=== PATIENT | female | born 1975 | race Caucasian/White ===

== ENCOUNTER 2019-06-30 00:58 | Inpatient (IN) | payer OTHER, SELFPAY ==
[2019-06-30] VITALS (20 sets, daily range): BP systolic 102–141; BP diastolic 47–69; PULSE 83–107; RESP 16–30; TEMP 36.8–39.3; O2SAT 85–98; BMI 26.2
--- NOTE | ~2019-06-30 | XR_ITS ---
XR chest 1V portable DATE: 06/30/2019 02:36 INDICATION: Cough, shortness of breath. History of asthma. TECHNIQUE: Portable upright AP chest on 06/30/2019 at 0235 hours COMPARISON: 05/07/2018 PA and lateral chest FINDINGS: There are patchy bilateral infiltrates, more greater on the left, most prominent in the lef t lower lung, with additional areas in the left upper lobe, right lower lung. Normal heart size. No pulmonary vascular congestion or pleural effusion or pneumothorax. IMPRESSION: Patchy bilateral pulmonary infiltrates Reviewed, dictated and finalized at location A. SUCKER
--- NOTE | ~2019-06-30 | US_ITS ---
EXAMINATION: US venous doppler [facility] DATE: 07/03/2019 14:40 INDICATION: Lower limb pain. TECHNIQUE: Grayscale ultrasound images without and with compression and Doppler ultrasound images of the bilateral lower extremity veins were obtained. COMPARISON: None. FINDINGS: The visualized portions of right common femoral vein, profunda (deep) femoral vein, femoral vein, pop liteal vein, peroneal veins, posterior tibial veins, and greater saphenous vein outflow are patent. The visualized portions of left common femoral vein, profunda femoral vein, femoral vein, popliteal v ein, peroneal veins, posterior tibial veins, and greater saphenous vein outflow are patent. IMPRESSION: 1. No deep venous thrombosis. Reviewed, dictated and finalized at location A. N CHAIN OFF BEARER
--- NOTE | ~2019-06-30 | CT_ITS ---
EXAMINATION: CTA chest PE protocol DATE: 06/30/2019 09:48 INDICATION: Shortness of breath, increased respiratory rate, lung crackles TECHNIQUE: Computed tomography angiography (CTA) of the chest was performed with 100 mL Omnipaque-350 intravenous contrast timed to evaluate the pulmonary arteries. Coronal maximum intensity projection 3D-reconstructions were created by the technologist. Automated exposure control and iterative reconst ruction technique were employed. Exam dose: 208.35 mGy-cm total exam DLP. COMPARISON: 06/30/2019 portable AP chest FINDINGS: There is diagnostic contrast enhancement of the pulmonary arteries and no evidence of pulmo nary embolism. No thoracic aortic aneurysm or dissection. There is nonspecific mild bilateral hilar and mediastinal lymphadenopathy, possibly reactive. There is bilateral lower lobe dependent atelectasis. There are patchy geographic areas of groundglass infiltrate involving particularly the upper lobes, l eft greater than right and to a mild extent the left and to a lesser extent right lower lobes. Incidentally noted is mild pneumobilia. No suspicious osteolytic or osteoblastic lesions are noted. IMPRESSION: Bilateral pulmonary infiltrates and likely reactive bilateral hilar or mediastinal lymph adenopathy No evidence of pulmonary embolism Reviewed, dictated and finalized at [facility]. Reviewed, dictated and finalized at location A. TIVE SPOTTER IMPRESSION: Bilateral pulmonary infiltrates and likely reactive bilateral nomi r or mediastinal lymphadenopathy No evidence of pulmonary embolism
--- NOTE | 2019-06-30 01:02 | ED.SOB ---
HPI - SOB/Dyspnea General Chief Complaint: Shortness of Breath/Dyspnea Stated Complaint: sob Time Seen by Provider: 06/30/19 01:01 Source: patient and RN notes reviewed Mode of arrival: EMS Limitations: no limitations History of Present Illness HPI Narrative: Pt is a 43 y/o female presenting to the ED via EMS c/o SOB. Pt reports she has been experiencing SOB and cough for 1 week. Pt also reports chills and chronic BLE swelling, but denies fever. Pt states she does not have a Hx of CHF, but is a 1 ppd smoker. Pt notes she is not on any home oxygen. Pertinent past history: other (None) Onset (ago): week(s) (1) Associated symptoms: cough and other (Chronic BLE swelling; chills) Related Data Allergies Allergy/AdvReac Type Severity Reaction Status Date / Time cyclobenzaprine Allergy Intermediate Hives Verified 05/29/19 20:23 latex Allergy Intermediate Hives Verified 05/29/19 20:23 methotrexate Allergy Intermediate Nausea and Verified 05/29/19 20:23 Vomiting CYCLOBENZAPRINE HCL Allergy Mild RASHES Uncoded 02/13/19 08:04 Review of Systems Review of Systems: All systems reviewed & are unremarkable except as noted in HPI and below Constitutional: Constitutional: Reports chills and Denies fever(s) Respiratory: Respiratory: Reports cough and Reports dyspnea Integumentary/Breasts: Skin/Breast: Reports swelling (Chronic BLE) PMFSH Past Medical History Medical History Abnormal uterine bleeding Anemia Anxiety Asthma DDD (degenerative disc disease) Depression GERD (gastroesophageal reflux disease) History of bipolar disorder History of fibromyalgia History of lupus History of rheumatoid arthritis Hypothyroid IBS (irritable bowel syndrome) Migraine Ovarian cyst Pancreatitis Pneumonia Shingles Surgical History Surgical History H/O abdominal surgery Pancreatic stent placed H/O dilation and curettage H/O tubal ligation History of History of cholecystectomy Family History Family History Mother Patient's mother is in good health Family history of diabetes mellitus in first degree relative Father Cerebrovascular accident, Onset Age: 69 Family history of Alzheimer's disease, Onset Age: 69 Hypertension Family history of coronary artery disease Other Family history of lupus erythematosus Family history of malignant neoplasm of breast Social History Social History Smoking packs per day: 1 Smoking cigarettes per day: 20.0 Smoking status: Current every day smoker Second hand tobacco smoke exposure: No Smoking end date: 06/05/10 Alcohol intake: never Exam Narrative: Exam Narrative: APPEARANCE: Mild respiratory distress, nontoxic, resting in bed EYES: EOMI HEENT: Normocephalic, atraumatic, bilateral turbinates boggy, oral mucosa moist RESPIRATORY: Mild respiratory distress, coarse breath sounds at the bilateral lung moses, CARDIOVASCULAR: Regular rate and rhythm without murmurs rubs or gallops. ABDOMINAL: Soft, nontender, nondistended, no rebound or guarding MUSCULOSKELETAl: Moves all extremities. No clubbing, cyanosis or edema. NEURO: Awake and alert. Following commands, speech normal, no focal deficits SKIN:: Warm, dry. No rashes lesions or abrasions PSYCHIATRIC: Normal affect/mood, Course Course Emergency Course: Discussed with patient and family results of workup and diagnosis. Discussed need for admission. Patient and family understand and agree to current treatment plan Consultations Consultation #1: Discussed case with Hospitalist Dr. Maldonado. Accepted the pt for admission. Date: 06/30/19 Time: 02:55 Vital Signs Vital signs: Vital Signs Temperature 98.3 F 06/30/19 00:55 Pulse Rate 106 H 06/30/19 00:55 Respiratory Rate 25 H 06/30/19 00:55 Blood Pressure 141/57 H 06/30/19 00:55 Pulse Oximetry 8
--- NOTE | 2019-06-30 01:03 | ECG_ITS ---
Measurements Intervals [place] Rate: 97 P: 46 SD: 117 QRS: 1 QRSD: 96 T: 47 QT: 330 QTc: 420 Interpretive Statements SINUS RHYTHM WITH SHORT SD INTERVAL DELAYED PRECORDIAL R/S TRANSITION BORDERLINE ECG Electronically Signed On 06-30-2019 7:20:24 SUSPENDER CUTTER by Andrea Javed D.O.
[2019-06-30] MEDS: LACTATED RINGERS 1,000 ML 999 ML IV CONT (01:13)
[2019-06-30] MEDS: ALBUTEROL SULFATE NEB 2.5 MG/0.5 ML INH 5 MG INHALATION ×5 (01:30→20:23)
[2019-06-30] MEDS: IPRATROPIUM BR 0.02% INH SOLN 0.5 MG/2.5 ML VIAL INHALATION ×5 (01:31→20:23)
[2019-06-30 02:02] LABS: Basophils Percent Auto 0.3 % (0.2-1.2); Hematocrit 36.1 % (37.0-47.0); Hemoglobin 12.5 g/dL (12.0-15.0); Immature Granulocyte Absolute 0.04 K/mm3 (0.00-0.031); Immature Granulocyte Percent A 0.5 % (0-0.5); Lymphocytes Absolute Auto 0.58 K/mm3 (0.9-3.2); Lymphocytes Percent Auto 7.3 % (18.3-44.2); Mean Corpuscular HGB Conc 34.6 g/dl (32-36); Mean Corpuscular Hemoglobin 29.9 pg (26-34); Mean Corpuscular Volume 86.4 fl (80-100); Monocytes Absolute Auto 0.3 K/mm3 (0.1-0.6); Monocytes Percent Auto 3.5 % (2.6-8.5); Neutrophils Percent Auto 88.4 % (45.5-73.1); Platelet Count Result 282 k/mm3 (150-375); Red Blood Count 4.18 M/mm3 (4.2-5.4); Red Cell Distribution Width 13.4 % (11.5-14.5)
[2019-06-30 02:23] LABS: Lactic Acid Reflex 1.9 mmol/L (0.7-2.1)
[2019-06-30 02:23] LABS: INR 0.9; Prothrombin Time 11.4 Seconds (11.1-14.7)
[2019-06-30 02:24] LABS: Partial Thromboplastin Time 40.6 SECONDS (22.3-36.8)
[2019-06-30 02:25] LABS: Alanine Aminotransferase 13 U/L (4-35); Albumin Level 3.3 g/dL (3.5-5.1); Alkaline Phosphatase 70 U/L (38-126); Aspartate Amino Transferase 28 U/L (14-36); Bilirubin,Total 0.3 mg/dL (0.2-1.3); Blood Urea Nitrogen 11 mg/dL (7-17); Calcium 8.2 mg/dL (8.4-10.2); Carbon Dioxide 21 mmol/L (22-30); Chloride 99 mmol/L (98-107); Estimated CRCL calculation 94 ml/min; Estimated Glomerular Filt Rate > 60; Glucose 122 mg/dL (65-105); Potassium 3.6 mmol/L (3.4-5.0); Sodium 130 mmol/L (137-145)
[2019-06-30 02:36] LABS: NT Pro B Type Natriuretic Pept 314 PG/ML (5-100); Troponin I 0.012 ng/mL (0.000-0.034)
[2019-06-30 03:38] LABS: Add Urine Microscopic? YES; Appearance Urine Cloudy (Clear); Bacteria Urine 1+ /hpf; Bilirubin Urine Negative (Negative); Blood Urine Negative (Negative); Color Urine Yellow (Yellow); Glucose Urine UA Negative (Negative); Ketones Urine Negative (Negative); Leukocyte Esterase Ur Negative LEU/UL (Negative); Mucus Urine Rare /lpf; Nitrate Urine Positive (Negative); Protein Urine 1+ mg/dL (Negative); Specific Grav Ur 1.014 (1.001-1.035); Squamous Epithelial Cell Urine Many /hpf (Few); Urobilinogen Urine Negative mg/dL (<2.0); WBC Urine 0-3 /hpf
[2019-06-30] MEDS: ACETAMINOPHEN 325 MG TABLET 650 MG PO (05:27)
[2019-06-30] MEDS: LACTATED RINGERS 1,000 ML 80 ML IV CONT ×2 (05:27→23:50)
[2019-06-30] MEDS: OSELTAMIVIR PHOSPHATE 75 MG CAP PO ×2 (05:39→17:17)
--- NOTE | 2019-06-30 08:16 | PM.IMHP ---
H&P: HPI History of Present Illness Chief complaint: INFLUENZA B,ACUTE RESPIRATORY FAILURE WITH HYPOXIA Narrative: Stacey Muñoz is a 43 year old woman with a history of tobacco abuse, rheumatoid arthritis, lupus, who presents to the emergency room with shortness of breath. Patient reports having a cold for the last 1 week with symptoms of productive cough with light green sputum, rhinorrhea, sinus pressure. She had been taking [id number] Aleve cold and flu, cough drops and Robitussin cough syrup without much relief. Thin yesterday she developed shortness of breath and was feeling like she was having hard time taking a deep breath, and developing some pain with deep inspiration. She also reports muscular chest discomfort which is worse with palpation and with coughing. She denies any fevers, chills. The patient reports chronic leg swelling and denies any worsening swelling, redness, calf pains. Patient does have restless legs and the last few nights her pain and restlessness has been worse. She denies any headaches, lightheadedness, dizziness, syncope. The patient has also had intermittent nausea and diarrhea the last couple days, denies vomiting. Denies any abdominal pain, other than when she coughs. He denies any frequent urination or dysuria. Initial vitals showed, temperature of 97.9?, blood pressure 153/80, heart rate 85, respiratory rate 18, oxygenation 100% on room air. Initial labs showed, WBC 8000 with a left shift, stable H&H, normal coag panel, hyponatremia 130, serum bicarb was 21, normal renal function. BNP 314. Normal troponin. Urinalysis shows cloudy urine with 1+ protein, positive nitrites, many squamous cells and 1+ bacteria. Positive influenza swab in the ER. patient's chest x-ray on arrival showed patchy bilateral pulmonary infiltrates. The patient had blood cultures that were taken. She was admitted into the hospital with influenza, bilateral pneumonia and further monitoring of her shortness of breath. Code status: Full code [id number]: The patient is unsure who her POA will be at this time but she tells me that she will let me know when she decides. PCP: She states her primary care told her 1 month ago that they no longer take her insurance so she does not have a PCP at this time. Review of Systems Review of Systems: All systems reviewed & are unremarkable except as noted in HPI and below PMFSH Past Medical History Medical History (Updated 06/30/19 @ 15:41 by Soo Barnes PA-C) Abnormal uterine bleeding Anemia Anxiety Asthma DDD (degenerative disc disease) Depression GERD (gastroesophageal reflux disease) History of bipolar disorder History of fibromyalgia History of lupus History of rheumatoid arthritis Hypothyroid IBS (irritable bowel syndrome) Migraine Ovarian cyst Pancreatitis Pneumonia Shingles Surgical History Surgical History (Updated 06/30/19 @ 15:37 by Soo Barnes PA-C) H/O abdominal surgery Pancreatic stent placed H/O dilation and curettage H/O tubal ligation History of cholecystectomy Family History Family History Mother Patient's mother is in good health Family history of diabetes mellitus in first degree relative Father Cerebrovascular accident, Onset Age: 69 Family history of Alzheimer's disease, Onset Age: 69 Hypertension Family history of coronary artery disease Other Family history of lupus erythematosus Family history of malignant neoplasm of breast Social History Social History Smoking packs per day: 1 Smoking cigarettes per day: 20.0 Smoking status: Current every day smoker Second hand tobacco smoke exposure: No Smoking end date: 06/05/10 Alcohol intake: former Substance use: current Substance use type: marijuana Gender identity (if verbalized by the patient): Female Spiritual care concerns: N
[2019-06-30] MEDS: FLUTICASONE PROPIONATE 0.05% NA SPR 16 GM BTL (*BKC) 2 SPRAY NASAL (10:19)
[2019-06-30] MEDS: VENLAFAXINE HCL XR 75 MG CAP.ER.24H PO (10:20)
[2019-06-30] MEDS: MELOXICAM 7.5 MG TABLET 15 MG PO (10:20)
[2019-06-30] MEDS: TIZANIDINE HCL 4 MG TABLET PO (10:20)
[2019-06-30] MEDS: LEVOTHYROXINE SODIUM 25 MCG TABLET PO (10:20)
[2019-06-30] MEDS: DULOXETINE 60 MG CAPSULE.DR PO (10:20)
[2019-06-30] MEDS: ASPIRIN 81 MG ENTERIC TABLET PO (10:20)
[2019-06-30] MEDS: GABAPENTIN 300 MG CAPSULE 600 MG PO ×3 (10:21→21:33)
[2019-06-30] MEDS: TORSEMIDE 10 MG TABLET PO (10:21)
--- NOTE | 2019-06-30 10:25 | PC.NURSE ---
Called pharmacy and requested 0900 dose of topamax be sent to floor for administration.
[2019-06-30] MEDS: TOPIRAMATE 100 MG TABLET PO ×2 (10:58→21:33)
--- NOTE | 2019-06-30 16:36 | PC.NURSE ---
Called pharmacy and requested patient's 0900 dose of drisdol be sent to floor for administration.
[2019-06-30] MEDS: ERGOCALCIFEROL 50,000 UNIT CAPSULE 50000 UNITS PO (17:17)
[2019-06-30] MEDS: MONTELUKAST SODIUM 10 MG TABLET PO (21:33)
[2019-07-01] VITALS (16 sets, daily range): BP systolic 95–109; BP diastolic 45–62; PULSE 69–88; RESP 16–20; TEMP 36.6–37.1; O2SAT 18–97
[2019-07-01] MEDS: IPRATROPIUM BR 0.02% INH SOLN 0.5 MG/2.5 ML VIAL INHALATION ×6 (00:31→23:56)
[2019-07-01] MEDS: ALBUTEROL SULFATE NEB 2.5 MG/0.5 ML INH 5 MG INHALATION ×6 (00:31→23:56)
[2019-07-01] MEDS: ACETAMINOPHEN 325 MG TABLET 650 MG PO ×2 (04:04→14:41)
[2019-07-01] MEDS: LEVOTHYROXINE SODIUM 25 MCG TABLET PO (06:16)
[2019-07-01] MEDS: GABAPENTIN 300 MG CAPSULE 600 MG PO ×3 (06:16→21:04)
[2019-07-01] MEDS: OSELTAMIVIR PHOSPHATE 75 MG CAP PO ×2 (06:16→17:22)
[2019-07-01 06:24] LABS: Basophils Percent Auto 0.3 % (0.2-1.2); Hematocrit 30.6 % (37.0-47.0); Hemoglobin 10.5 g/dL (12.0-15.0); Immature Granulocyte Absolute 0.02 K/mm3 (0.00-0.031); Immature Granulocyte Percent A 0.3 % (0-0.5); Lymphocytes Absolute Auto 0.86 K/mm3 (0.9-3.2); Lymphocytes Percent Auto 13.7 % (18.3-44.2); Mean Corpuscular HGB Conc 34.3 g/dl (32-36); Mean Corpuscular Hemoglobin 29.7 pg (26-34); Mean Corpuscular Volume 86.4 fl (80-100); Mean Platelet Volume 11.1 fl (7.4-10.4); Monocytes Absolute Auto 0.4 K/mm3 (0.1-0.6); Monocytes Percent Auto 5.6 % (2.6-8.5); Neutrophils Percent Auto 80.1 % (45.5-73.1); Platelet Count Result 206 k/mm3 (150-375); Red Blood Count 3.54 M/mm3 (4.2-5.4); Red Cell Distribution Width 13.4 % (11.5-14.5); White Blood Count 6.3 K/mm3 (4.5-10.0)
[2019-07-01 06:33] LABS: Blood Urea Nitrogen 13 mg/dL (7-17); Calcium 7.3 mg/dL (8.4-10.2); Carbon Dioxide 23 mmol/L (22-30); Chloride 98 mmol/L (98-107); Estimated CRCL calculation 82 ml/min; Estimated Glomerular Filt Rate > 60; Glucose 93 mg/dL (65-105); Potassium 3.2 mmol/L (3.4-5.0); Sodium 131 mmol/L (137-145)
[2019-07-01 07:30] LABS: Magnesium 1.5 mg/dL (1.6-2.3)
[2019-07-01] MEDS: POTASSIUM CHLORIDE 20 MEQ TABLET 40 MEQ PO (08:47)
[2019-07-01] MEDS: ASPIRIN 81 MG ENTERIC TABLET PO (08:47)
[2019-07-01] MEDS: DULOXETINE 60 MG CAPSULE.DR PO (08:48)
[2019-07-01] MEDS: FLUTICASONE PROPIONATE 0.05% NA SPR 16 GM BTL (*BKC) 2 SPRAY NASAL (08:48)
[2019-07-01] MEDS: TOPIRAMATE 100 MG TABLET PO ×2 (08:49→21:04)
[2019-07-01] MEDS: TIZANIDINE HCL 4 MG TABLET PO (08:49)
[2019-07-01] MEDS: MELOXICAM 7.5 MG TABLET 15 MG PO (08:49)
[2019-07-01] MEDS: TORSEMIDE 10 MG TABLET PO (08:50)
[2019-07-01] MEDS: VENLAFAXINE HCL XR 75 MG CAP.ER.24H PO (08:50)
--- NOTE | 2019-07-01 09:29 | PM.IMPN ---
Progress Note: A&P Assessment and Plan (1) Sepsis: Code(s): A41.9 - Sepsis, unspecified organism Status: Acute Assessment and Plan: Patient meets for sepsis with increased respiratory rate, tachycardia at 107, fever of 102.7, hypoxia at 85% on room air last night and diagnosis of pneumonia. She was started on IV antibiotics for her pneumonia and IV fluids for sepsis. Today her vitals are stable. We will discontinue the IV fluids at this time and continue running antibiotics for pneumonia. Blood cultures are pending Will continue monitoring the patient's vitals and leukocytosis. (2) Acute respiratory failure with hypoxia: Code(s): J96.01 - Acute respiratory failure with hypoxia Status: Acute Assessment and Plan: When patient arrived to the ER she had normal oxygen saturations, then around 1:00 a.m. she was found to be 85% on room air. She was placed on 2 L of oxygen via nasal cannula. This is most likely secondary to her influenza and pneumonia. The patient had been off oxygen yesterday evening but this morning after she had a breathing treatment her oxygen saturation was at 88%. The respiratory therapist put her on 1 L of oxygen he will continue monitoring her saturations rest the day. CTA of her chest showed no PE, but bilateral pulmonary infiltrates and likely reactive bilateral hilar or mediastinal lymphadenopathy. Continue treatment for pneumonia with IV antibiotics. Continue monitoring the patient respiratory status. (3) Influenza B: Code(s): J10.1 - Influenza due to other identified influenza virus with other respiratory manifestations Status: Acute Assessment and Plan: Positive influenza B diagnosis the emergency room. She was started on Tamiflu. Continue monitoring. (4) Pneumonia: Code(s): J18.9 - Pneumonia, unspecified organism Status: Acute Assessment and Plan: Patient chest x-ray and CT chest shows bilateral patchy infiltrates. This could be viral in nature from influenza versus bacterial. She was started on IV ceftriaxone and azithromycin for pneumonia this time. Continue DuoNeb treatments. Also start her on Mucinex, Cornet therapy, incentive spirometry. Continue monitoring the patient's symptoms. (5) Hypokalemia: Code(s): E87.6 - Hypokalemia Status: Acute Assessment and Plan: Patient's potassium was found to be 3.2 and magnesium was 1.5 today. This is most likely secondary to IV fluid dilution but we will replenish potassium and magnesium. Will recheck labs in the morning. (6) Tobacco abuse: Code(s): Z72.0 - Tobacco use Status: Chronic Assessment and Plan: Patient smokes about half pack a day for last 30 years. I educated the patient quit smoking especially after this acute illness. She is not currently ready to quit smoking at this time we and states that she does not need a nicotine patch right now. (7) Anemia: Code(s): D64.9 - Anemia, unspecified Status: Chronic Assessment and Plan: Patient reports history of iron deficiency anemia. H&H slightly lower today but she was receiving a lot of IV fluids for infection. Hemoglobin was 10.5 and hematocrit was 30.6. Continue monitoring the patient's H&H, transfuse as needed. Time Spent With Patient Time with patient: 25 - 35 minutes Subjective Date/time seen: 07/01/19 09:29 Interval history: Date of service 07/01/2019: The patient reports feeling slightly improved today. She is still having a productive cough and intermittently feeling short of breath at rest and she definitely has shortness of breath w
[2019-07-01] MEDS: MAGNESIUM SULFATE 3GM/D5W100ML 3 GM/100 ML BAG IVPB (10:43)
[2019-07-01 14:42] LABS: Glucose Point of Care 72 (65-105)
[2019-07-01 17:32] LABS: Glucose Point of Care 91 (65-105)
[2019-07-01] MEDS: LACTATED RINGERS 1,000 ML 80 ML IV CONT (18:26)
--- NOTE | 2019-07-01 18:58 | PCRCNOTE ---
Window of time for administration has passed. See next scheduled administration.
[2019-07-01] MEDS: MONTELUKAST SODIUM 10 MG TABLET PO (21:04)
[2019-07-02] VITALS (16 sets, daily range): BP systolic 109–117; BP diastolic 55–68; PULSE 69–88; RESP 16–20; TEMP 36.5–37; O2SAT 94–99
[2019-07-02] MEDS: IPRATROPIUM BR 0.02% INH SOLN 0.5 MG/2.5 ML VIAL INHALATION ×5 (03:49→22:54)
[2019-07-02] MEDS: ALBUTEROL SULFATE NEB 2.5 MG/0.5 ML INH 5 MG INHALATION ×5 (03:49→22:54)
[2019-07-02] MEDS: SUMAtriptan SUCCINATE 25 MG TABLET 50 MG PO ×2 (04:53→23:13)
[2019-07-02 05:38] LABS: Hematocrit 30.8 % (37.0-47.0); Hemoglobin 10.4 g/dL (12.0-15.0); Mean Corpuscular HGB Conc 33.8 g/dl (32-36); Mean Corpuscular Hemoglobin 29.4 pg (26-34); Mean Platelet Volume 10.8 fl (7.4-10.4); Platelet Count Result 184 k/mm3 (150-375); Red Blood Count 3.54 M/mm3 (4.2-5.4); Red Cell Distribution Width 13.3 % (11.5-14.5); White Blood Count 4.8 K/mm3 (4.5-10.0)
[2019-07-02 05:52] LABS: Blood Urea Nitrogen 13 mg/dL (7-17); Calcium 7.3 mg/dL (8.4-10.2); Carbon Dioxide 25 mmol/L (22-30); Chloride 101 mmol/L (98-107); Estimated CRCL calculation 72 ml/min; Estimated Glomerular Filt Rate > 60; Glucose 89 mg/dL (65-105); Magnesium 2.2 mg/dL (1.6-2.3); Potassium 3.8 mmol/L (3.4-5.0); Sodium 134 mmol/L (137-145)
[2019-07-02] MEDS: OSELTAMIVIR PHOSPHATE 75 MG CAP PO ×2 (06:13→17:37)
[2019-07-02] MEDS: LEVOTHYROXINE SODIUM 25 MCG TABLET PO (06:13)
[2019-07-02] MEDS: GABAPENTIN 300 MG CAPSULE 600 MG PO ×3 (06:14→20:11)
[2019-07-02] MEDS: LACTATED RINGERS 1,000 ML 80 ML IV CONT (08:30)
[2019-07-02] MEDS: VENLAFAXINE HCL XR 75 MG CAP.ER.24H PO (08:33)
[2019-07-02] MEDS: ASPIRIN 81 MG ENTERIC TABLET PO (08:33)
[2019-07-02] MEDS: TIZANIDINE HCL 4 MG TABLET PO (08:33)
[2019-07-02] MEDS: DULOXETINE 60 MG CAPSULE.DR PO (08:33)
[2019-07-02] MEDS: TORSEMIDE 10 MG TABLET PO ×2 (08:33→18:29)
[2019-07-02] MEDS: TOPIRAMATE 100 MG TABLET PO ×2 (08:34→20:12)
[2019-07-02] MEDS: FLUTICASONE PROPIONATE 0.05% NA SPR 16 GM BTL (*BKC) 2 SPRAY NASAL (08:34)
[2019-07-02] MEDS: MELOXICAM 7.5 MG TABLET 15 MG PO (08:34)
[2019-07-02] MEDS: ACETAMINOPHEN 325 MG TABLET 650 MG PO (08:39)
--- NOTE | 2019-07-02 17:42 | PM.IMPN ---
Progress Note: A&P Assessment and Plan (1) Sepsis: Code(s): A41.9 - Sepsis, unspecified organism Status: Acute Assessment and Plan: Patient met criteria for sepsis with increased respiratory rate, tachycardia at 107, fever of 102.7, hypoxia at 85% on room air earlier in stay and diagnosis of pneumonia as source. She was started on IV antibiotics for her pneumonia and IV fluids for sepsis. Today her vitals are stable IVF stopped as patient showing more swelling in LE Continue Rocephin and azithromycin Blood cultures negative to date Will continue monitoring the patient's vitals/symptoms (2) Acute respiratory failure with hypoxia: Code(s): J96.01 - Acute respiratory failure with hypoxia Status: Acute Assessment and Plan: When patient arrived to the ER she had normal oxygen saturations, then around 1:00 a.m. she was found to be 85% on room air. She was placed on 2 L of oxygen via nasal cannula, at that time, but has weaned to 1L O2 when ambulating. She wishes to try to ambulate again tonight. This is most likely secondary to her influenza and pneumonia. CTA of her chest showed no PE, but bilateral pulmonary infiltrates and likely reactive bilateral hilar or mediastinal lymphadenopathy. Continue treatment for pneumonia with IV antibiotics. Continue monitoring the patient respiratory status as this appears to be slowly improving Continue IS, Sandy shine (3) Influenza B: Code(s): J10.1 - Influenza due to other identified influenza virus with other respiratory manifestations Status: Acute Assessment and Plan: Positive influenza B diagnosis the emergency room. She was started on Tamiflu. Continue Tamiflu Continue monitoring. (4) Pneumonia: Code(s): J18.9 - Pneumonia, unspecified organism Status: Acute Assessment and Plan: Patient chest x-ray and CT chest shows bilateral patchy infiltrates. This could be viral in nature from influenza versus bacterial. She was started on IV ceftriaxone and azithromycin for pneumonia Continue IV abx Continue DuoNeb treatments, Mucinex, Cornet therapy, incentive spirometry. Continue monitoring the patient's symptoms. (5) Hypokalemia: Code(s): E87.6 - Hypokalemia Status: Acute Assessment and Plan: Patient's potassium improved to 3.8 and magnesium improved to 2.2 today. Hypokalemia likely due to dilution with IVF Continue to trend labs (6) Tobacco abuse: Code(s): Z72.0 - Tobacco use Status: Chronic Assessment and Plan: Patient smokes about half pack a day for last 30 years.Smoking cessation will be essential for overall health. nicotine patch as needed. No issues as of yet (7) Anemia: Code(s): D64.9 - Anemia, unspecified Status: Chronic Assessment and Plan: Patient reports history of iron deficiency anemia. No evidence of bleed H&H stable at 10.4/30.8 today. Monitor/trend CBC transfuse as needed. Subjective Date/time seen: 07/02/19 17:42 Interval history: Patient is a 43 yo F with history of tobacco abuse, RA, and lupus who is here for treatment of sepsis with pneumonia and influenza. Patient is feeling better today, although notes that she feels slightly weak and has some dizzy spells as she has not been up, moving around as much here in the hospital. Overall, she has shown improvement. Notes that her cough and SOB have improved. She reports a sore throat. She is still having a productive cough and intermittently feeling short of breath particularly when walking. She denies f/c/ns, lightheadedness, feeling of going
[2019-07-02] MEDS: MONTELUKAST SODIUM 10 MG TABLET PO (20:12)
[2019-07-03] VITALS (8 sets, daily range): BP systolic 104–113; BP diastolic 46–57; PULSE 71–90; RESP 16; TEMP 36.8–37.3; O2SAT 94–96
[2019-07-03] MEDS: IPRATROPIUM BR 0.02% INH SOLN 0.5 MG/2.5 ML VIAL INHALATION ×2 (02:51→08:52)
[2019-07-03] MEDS: ALBUTEROL SULFATE NEB 2.5 MG/0.5 ML INH 5 MG INHALATION ×2 (02:51→08:52)
[2019-07-03 06:02] LABS: Basophils Percent Auto 0.3 % (0.2-1.2); Eosinophils Absolute Auto 0.1 K/mm3 (0-0.3); Hematocrit 32.3 % (37.0-47.0); Immature Granulocyte Absolute 0.01 K/mm3 (0.00-0.031); Immature Granulocyte Percent A 0.3 % (0-0.5); Lymphocytes Absolute Auto 0.82 K/mm3 (0.9-3.2); Lymphocytes Percent Auto 23.6 % (18.3-44.2); Mean Corpuscular HGB Conc 34.1 g/dl (32-36); Mean Corpuscular Hemoglobin 29.7 pg (26-34); Mean Corpuscular Volume 87.3 fl (80-100); Mean Platelet Volume 10.9 fl (7.4-10.4); Monocytes Absolute Auto 0.2 K/mm3 (0.1-0.6); Monocytes Percent Auto 6.6 % (2.6-8.5); Neutrophils Absolute Auto 2.3 K/mm3 (1.3-6.7); Neutrophils Percent Auto 67.2 % (45.5-73.1); Platelet Count Result 208 k/mm3 (150-375); Red Cell Distribution Width 13.2 % (11.5-14.5); White Blood Count 3.5 K/mm3 (4.5-10.0)
[2019-07-03 06:05] LABS: Blood Urea Nitrogen 12 mg/dL (7-17); Carbon Dioxide 27 mmol/L (22-30); Chloride 99 mmol/L (98-107); Estimated CRCL calculation 72 ml/min; Estimated Glomerular Filt Rate > 60; Glucose 84 mg/dL (65-105); Magnesium 1.8 mg/dL (1.6-2.3); Potassium 3.9 mmol/L (3.4-5.0); Sodium 132 mmol/L (137-145)
[2019-07-03] MEDS: OSELTAMIVIR PHOSPHATE 75 MG CAP PO ×2 (06:05→16:45)
[2019-07-03] MEDS: GABAPENTIN 300 MG CAPSULE 600 MG PO ×2 (06:05→14:42)
[2019-07-03] MEDS: LEVOTHYROXINE SODIUM 25 MCG TABLET PO (06:05)
[2019-07-03] MEDS: ASPIRIN 81 MG ENTERIC TABLET PO (09:23)
[2019-07-03] MEDS: DULOXETINE 60 MG CAPSULE.DR PO (09:23)
[2019-07-03] MEDS: TIZANIDINE HCL 4 MG TABLET PO (09:24)
[2019-07-03] MEDS: TOPIRAMATE 100 MG TABLET PO (09:24)
[2019-07-03] MEDS: MELOXICAM 7.5 MG TABLET 15 MG PO (09:24)
[2019-07-03] MEDS: VENLAFAXINE HCL XR 75 MG CAP.ER.24H PO (09:24)
[2019-07-03] MEDS: TORSEMIDE 10 MG TABLET PO (09:25)
--- NOTE | 2019-07-03 10:43 | PM.DS ---
DS: Diagnosis Admitting Diagnosis Admitting Diagnosis: Sepsis, unspecified organism Discharge Diagnosis (1) Sepsis: Code(s): A41.9 - Sepsis, unspecified organism Status: Acute Assessment and Plan: Patient met criteria for sepsis with increased respiratory rate, tachycardia at 107, fever of 102.7, hypoxia at 85% on room air earlier in stay and diagnosis of pneumonia as source. She was started on IV antibiotics for her pneumonia and IV fluids for sepsis. VSS, afebrile IV Rocephin and azithromycin during stay. Will send home with one dose azithromycin PO and 3 days worth of Cefdinir Blood cultures negative to date. Sputum cultures show few gram positive cocci in clusters and rare gram positive bacilli Follow up with PCP (2) Acute respiratory failure with hypoxia: Code(s): J96.01 - Acute respiratory failure with hypoxia Status: Acute Assessment and Plan: When patient arrived to the ER she had normal oxygen saturations, then around 1:00 a.m. she was found to be 85% on room air. She was placed on 2 L of oxygen via nasal cannula, at that time, and has been weaned to RA. This is most likely secondary to her influenza and pneumonia. She has been ambulating to bathroom without issues on RA today CTA of her chest showed no PE, but bilateral pulmonary infiltrates and likely reactive bilateral hilar or mediastinal lymphadenopathy. Continue treatment for pneumonia with PO antibiotics at discharge Continue IS, sunt, Mucinex at discharge (3) Influenza B: Code(s): J10.1 - Influenza due to other identified influenza virus with other respiratory manifestations Status: Acute Assessment and Plan: Positive influenza B diagnosis the emergency room. She was started on Tamiflu. Continue Tamiflu until evening of 07/04 (5 days total) (4) Pneumonia: Code(s): J18.9 - Pneumonia, unspecified organism Status: Acute Assessment and Plan: Patient chest x-ray and CT chest shows bilateral patchy infiltrates. This could be viral in nature from influenza versus bacterial. She was started on IV ceftriaxone and azithromycin for pneumonia PO abx as above Continue Mucinex, Cornet therapy, incentive spirometry. (5) Hypokalemia: Code(s): E87.6 - Hypokalemia Status: Acute Assessment and Plan: Patient's potassium improved to 3.9 and magnesium 1.8 today. Hypokalemia likely due to dilution with IVF F/u with primary (6) Tobacco abuse: Code(s): Z72.0 - Tobacco use Status: Chronic Assessment and Plan: Patient smokes about half pack a day for last 30 years.Smoking cessation will be essential for overall health. nicotine patch as needed. No issues as of yet (7) Anemia: Code(s): D64.9 - Anemia, unspecified Status: Chronic Assessment and Plan: Patient reports history of iron deficiency anemia. No evidence of bleed H&H stable at 11.0/32.3 today. F/u with primary DS: Summary Hospital Course Reason for hospitalization: Sepsis, Influenza/PNA, acute respiratory failure with hypoxia Hospital Course: Patient is a 43 yo F with history of tobacco abuse, rheumatoid arthritis, lupus, who presents to the emergency room on 06/30 with complaints of shortness of breath. She reported a cold for the last week with a productive cough with light green sputum. Flu swab was positive for Influenza B while in the ED; she was also found to be hypoxic on RA. Please see H&P for further details. Presenting VS: BP 141/57, HR 106, RR 25, temp 98.3, sat 95% RA Presenting Pertinent labs: WBC 8.0, H&H 12.5/36.1, Na 130. CBC, CMP, BNP, L.A, U
== END 2019-07-03 17:05 | disposition home or self-care (01) | DRG 139 ==
LOC: ANHED 01:47 → ANH2MED 03:15
PROVIDERS: Physician Assistant; Admitting Provider Internal Medicine; Emergency Provider Emergency Medicine; Visit Provider Internal Medicine
DX: J10.08 Influenza due to other identified influenza virus with other specified pneumonia (principal); J10.01 Influenza due to other identified influenza virus with the same other identified influenza virus pneumonia; J96.01 Acute respiratory failure with hypoxia; D64.9 Anemia, unspecified; F17.210 Nicotine dependence, cigarettes, uncomplicated; M06.9 Rheumatoid arthritis, unspecified; M32.9 Systemic lupus erythematosus, unspecified; D41.8 Neoplasm of uncertain behavior of other specified urinary organs; M79.7 Fibromyalgia; E03.9 Hypothyroidism, unspecified; K58.9 Irritable bowel syndrome, unspecified
CPT/HCPCS: 36415; 71045; 71275; 80048; 80053; 81001; 83605; 83735; 83880; 84484; 85025; 85027; 85610; 85730; 87040; 87070; 87205; 87804; 93005; 93970; 94640; 94667; 96361; 96365; 96366; 96367; 96375; 99291; A9270; G0378; G0379; J0456; J0696; J3475; J7120; Q9967

== ENCOUNTER 2022-12-19 17:56 | Emergency (ER) | payer OTHER, SELFPAY ==
[2022-12-19 18:09] VITALS: BP 125/97; PULSE 84; RESP 18; TEMP 36.6; O2SAT 100
--- NOTE | 2022-12-19 18:38 | ED.EAR ---
HPI - Ear Problem General Chief complaint: Ear Stated complaint: rt ear pain Time Seen by Provider: 12/19/22 17:58 Source: patient Mode of arrival: ambulatory Limitations: no limitations History of Present Illness HPI Narrative: Patient is a 47-year-old female who presents with 1 week of sinus congestion and cough for with 1 day of severe right ear pain. Patient states she has been taking Mucinex with no relief along with Benadryl at night. Patient states she has used warm compress on ear with no relief. Patient states she is on chemotherapy and methotrexate for lupus and has had pneumonia and flu 3 times within the last 3 months. Denies any fever, chills, nausea, vomiting, diarrhea. MD Complaint: ear pain Related Data Home Medications Medication Instructions Recorded Confirmed albuterol sulfate 90 mcg/actuation 2 puff inhalation Q6H PRN 06/30/19 12/19/22 aerosol inhaler Shortness Of Breath Or Wheezing aspirin 81 mg tablet,delayed 81 mg PO DAILY 06/30/19 12/19/22 release (Adult Low Dose Aspirin) duloxetine 60 mg capsule,delayed 60 mg PO DAILY 06/30/19 12/19/22 release ergocalciferol (vitamin D2) 1,250 1,250 mcg PO WEEKLY 06/30/19 12/19/22 mcg (50,000 unit) capsule (Vitamin D2) fluticasone 113 mcg-salmeterol 14 1 puff inhalation BID 06/30/19 12/19/22 mcg/actuation breath activated powdr fluticasone propionate 50 2 spray intranasal DAILY 06/30/19 12/19/22 mcg/actuation nasal spray,suspension (Flonase Allergy Relief) gabapentin 600 mg tablet 600 mg PO Q8H 06/30/19 12/19/22 levothyroxine 25 mcg tablet 25 mcg PO DAILY 06/30/19 12/19/22 meloxicam 15 mg tablet 15 mg PO DAILY 06/30/19 12/19/22 montelukast 10 mg tablet 10 mg PO HS 06/30/19 12/19/22 (Singulair) sumatriptan succinate 50 mg tablet 50 mg PO DAILY 06/30/19 12/19/22 tizanidine 4 mg tablet 4 mg PO DAILY 06/30/19 12/19/22 topiramate 100 mg tablet (Topamax) 100 mg PO BID 06/30/19 12/19/22 torsemide 10 mg tablet 10 mg PO QAM 06/30/19 12/19/22 venlafaxine 75 mg capsule,extended 75 mg PO DAILY 06/30/19 12/19/22 release 24 hr (Effexor XR) Allergies Allergy/AdvReac Type Severity Reaction Status Date / Time cyclobenzaprine Allergy Intermediate Hives Verified 12/19/22 18:19 latex Allergy Intermediate Hives Verified 12/19/22 18:19 methotrexate Allergy Intermediate Nausea and Verified 12/19/22 18:19 Vomiting CYCLOBENZAPRINE HCL Allergy Mild RASHES Uncoded 12/19/22 18:19 Review of Systems Review of Systems: All systems reviewed & are unremarkable except as noted in HPI and below Constitutional: Constitutional: Denies body ache(s), Denies chills, Denies fever(s), Denies headache(s) and Denies malaise Eyes: Eyes: Denies blurry vision, Denies eye discharge and Denies irritation ENT: Reports otalgia, Denies headache(s), Reports nasal congestion, Reports nasal discharge, Reports sinus pressure and Denies sore throat Cardiovascular: Cardiovascular: Denies chest pain, Denies edema, Denies palpitations and Denies dyspnea on exertion Respiratory: Respiratory: Reports cough and Denies dyspnea on exertion Gastrointestinal: Gastrointestinal: Denies abdominal pain, Denies diarrhea, Denies nausea and Denies vomiting Musculoskeletal: Musculoskeletal: Denies back pain, Denies arthralgias and Denies muscle weakness Integumentary/Breasts: Skin/Breast: Denies pruritus and Denies rash Neurologic: Denies headache(s) Psychiatric: Psychiatric: Reports no additional psychiatric complaints Endocrine: Endocrine: Denies palpitations PMF Past Medical History Medical History (Updated 12/19/22 @ 18:48 by Deborah Roberts, [employer]) Abnormal uterine bleeding Anemia Anxiety Asthma DDD (degenerative disc disease) Depression GERD (gastroesophageal reflux disease) History of bipolar disorder History of fibromyalgia History of lupus History of rheumatoid arthritis Hypothyroid IBS (irritable bowel syndrome) Migraine Ovarian cyst Pancreatitis Pneumonia Sh
== END 2022-12-19 18:51 | disposition home or self-care (01) ==
PROVIDERS: Emergency Provider Nurse Practitioner Family; PCP Family Medicine
DX: H66.001 Acute suppurative otitis media without spontaneous rupture of ear drum, right ear (principal); J01.10 Acute frontal sinusitis, unspecified; Z87.891 Personal history of nicotine dependence; F12.90 Cannabis use, unspecified, uncomplicated; J45.909 Unspecified asthma, uncomplicated; K21.9 Gastro-esophageal reflux disease without esophagitis; M79.7 Fibromyalgia; M06.9 Rheumatoid arthritis, unspecified; E03.9 Hypothyroidism, unspecified; F41.9 Anxiety disorder, unspecified; F32.A Depression, unspecified; M32.9 Systemic lupus erythematosus, unspecified; Z79.60 Long term (current) use of unspecified immunomodulators and immunosuppressants; Z79.82 Long term (current) use of aspirin
CPT/HCPCS: 99213; G0463